=== PATIENT | female | born 1990 | race Caucasian/White ===

== ENCOUNTER → 2016-11-10 | Day surgery (SDC) | payer OTHER ==
[~2016-11-10] VITALS: Ht 165.1 cm; Wt 61.8 kg
[~2016-11-10] MED LIST: DOCO100C PO; Dexamethasone 4 mg/mL Inj IVPUSH PRN; Dexamethasone 4 mg/mL Inj ONE; EPHEDrine Sulfate 50 mg/mL Inj IVPUSH PRN; HYDROcodone-APAP 5-325 mg Tablet PO PRN; HYDROmorphone 1 mg/mL Inj IVPUSH PRN; Lactated Ringer's 1,000 ML IV ONE; Lactated Ringer's 1,000 ML IV SCH; Lactated Ringer's 500 ML IV PRN; Methylergonovine 0.2 mg/mL Inj ONE; MetoCLOpramide 5 mg/mL 2 mL Inj IVPUSH PRN; Ondansetron 2 mg/mL 2 mL Inj IVPUSH ONE; Ondansetron 2 mg/mL 2 mL Inj IVPUSH PRN; Ondansetron 2 mg/mL 2 mL Inj ONE; PRENATAL PO; Phenylephrine 10,000 mCg/mL Inj IVPUSH PRN; Propofol 10,000 mCg/mL 20 mL Inj ONE; fentaNYL-PF 50 mCg/mL 2 mL Inj IVPUSH PRN; fentaNYL-PF 50 mCg/mL 2 mL Inj ONE
[2016-11-10 11:45] VITALS: BP 115/73; PULSE 81; RESP 12; O2SAT 100
--- NOTE | 2016-11-10 13:29 | PCM.HPANE ---
Patient Data Date of Service: Nov 10, 2016 Surgeon Admitting Provider: Attending Provider:Yesi Walker MD Primary Care Physician:Frank Other Provider:Markie Davenport Anesthesia Reason for Visit Miscarriage Ht/WT & BMI Height (Feet): 5 Height (Inches): 5 Weight (Kilograms): 61.8 Body Mass Index 22.00 Allergies Coded Allergies: No Known Allergies (Unverified , 11/09/16) Past Anesthesia History Anesthesia History: Denies:: Anesthesia Reactions, Malignant Hyperthermia Diabetes History Hx Diabetes?: No MRSA MRSA: No Medications Reported Medications Docosahexanoic Acid (Dha)100 Mg [id number] Mg PO 11/10/16 [ 28] No Conflict Check1 Tab PO DAILY 11/09/16 History History of ENT Problems?: No HEENT History: Denies:: Abnormal Airway Cataracts Difficult Intubation Dysphagia Glaucoma Hearing Problem Sinus Problem TMJ Denture Type: None Teeth Condition: Within Normal Limits Hx of Heart Problems?: No Cardiovascular History: Denies:: AICD Abdominal Aortic Aneurism Atrial Fibrillation Cardiac Surgery Chest Pain Congestive Heart Failure Coronary Artery Disease Edema Heart Murmur Hypertension Irregular Heartbeat Pacemaker Peripheral Vascular Rheumatic Fever Thrombophlebitis Valvular Heart Disease Hx of Respiratory Problem?: No Respiratory History: Denies:: Asthma COPD Chest Surgery Cough Dyspnea Emphysema Hemoptysis Oxygen Administration Pneumonia Pulmonary Embolism Tuberculosis Use of C-PAP Machine Use of Inhalers / NEBS Hx Neurologic Problems?: No Neurological History: Denies:: Alzheimer's Disease CVA Dementia Dizziness Headaches Multiple Sclerosis Parkinson's Disease Peripheral Neuropathy Seizures TIA Hx of GI Problems?: No Gastrointestinal History: Denies:: Cirrhosis Diverticulitis Gall Bladder Disease Gastroesphageal Reflux Gastrointestinal Bleeding Heartburn Hepatitis Hiatal Hernia Liver Disease Rectal Bleeding Hx of Problems?: Yes Genitourinary History: Denies:: HX of Hemodialysis Kidney Stones Urinary Tract Infection Other Pertinent History: C/OF URINARY FREQUENCY Female Hx: Positive for:: Currently Denies:: Endometriosis Pelvic Inflammatory Problems with Breasts? Skin History: Denies:: History Skin Disorders? Pressure Ulcers Hx Musculoskeletal Problems?: No Musculoskeletal History: Denies:: Back Injury Degenerative Joint Fibromyalgia Joint Replacement Musculoskeletal Trauma Myasthenia Gravis Osteoarthritis Rheumatoid Arthritis Systemic Lupus Hx of Psycho/Social Problems?: No Psycho Social History: Denies:: Anxiety Bipolar Disorder Hx Depression Suicide Attempt Hx Surgeries?: Yes (C/S X1) Hx Any Other Health Problems?: Yes Other History: Denies:: Cancer Endocrine Disease Hospitalization Thyroid Disease History Blood Transfusions: Denies:: Accept Blood Products? Blood Transfuse Reaction Blood Transfusions Hx Diabetes: No Hx Alcohol Use: NoHx Substance Use: No Smoking Status: Never Smoker Stop/Bang Treated for Sleep Apnea?: No Do You Have a CPAP Machine?: No S-Snoring: Do You Snore Loudly: No T-Tired: feel tired, fatigued: No O-Obsered: Observed not breath: No P-Blood Pressure: treated: No B- Body Mass Index > 35 kg/m2: No A- Age over 50: No N- Neck Large Circumference: No G- Gender Male: No TODD Total Score: 0 TODD Risk Assessment: Low Risk, <3 Yes Risk Assessment Category Category 1A: Patient has history of documented sleep apnea, and HAS NOT received any narcotic, sedative or anesthesia administration during this stay. Category 1B: Patient has history of documented sleep apnea, and HAS received any narcotic , sedative or anesthesia administration during this stay Category 2: Patient has SUSPECTED Obstructive Sleep Apnea, and HAS received any narcotic , sedative or anesthesia administration during this stay. Category 3: Patient has SUSPECTED Obstructive Sleep Apnea and HAS NOT received narcotic, sedative or anesthesia administration during this stay. Category 4: Outpatient in Procedural Areas with known sleep apnea or who screen positive for High Risk via the STOP/BANG questionnaire. Exam Exam Vital Signs Vital Signs Date Time Temp Pulse Resp B/P Pulse Ox O2 Delivery O2 Flow Rate FiO2 11/10/16 11:45 35.9 81 12 115/73 100 Room Air General Appearance: Alert, Oriented X3, Cooperative, No Acute Distress HEENT/AIRWAY: MP 1 Lungs: Clear to Auscultation, Normal Air Movement Heart: Exam Unremarkable, Regular Rate/Rhythm, No Murmurs/Rubs/Gallops Meds/Labs/Diagnostics Admission Meds Current Medications Lactated Ringer's (Lr) 1,000 ml @ ud STK-MED ONCE IV Last administered on 12:16; Start 11/10/16 at 12:16; Stop 11/10/16 at 12:17; Status DC Doxycycline Hyclate (VibraTabs) 100 mg STK-MED ONCE .ROUTE Last administered on 11/10/16 12:35; Start 11/10/16 at 12:33; Stop 11/10/16 at 12:34; Status DC Plan Impression Patient chart reviewed, patient interviewed and anesthestic plan with risks, benefits, and alternatives discussed, and informed consent obtained. NPO per Anesth. Guidelines: Yes ASA Physical Status: ASA2 Mod Systemic Disease Anesthetic Plan: GA Bene/Risks/Altern/Consents: Yes HP Complete Prior to Induction: Yes Mario Ralph MD Nov 10, 2016 13:29
[2016-11-10 14:36] VITALS: BP 112/78; PULSE 105; RESP 12; O2SAT 100
--- NOTE | 2016-11-10 14:44 | PCM.ANEP1 ---
Post Anesthesia PACU Phase 1 Assessment Vital Signs Vital Signs Date Time Temp Pulse Resp B/P Pulse Ox O2 Delivery O2 Flow Rate FiO2 11/10/16 11:45 35.9 81 12 115/73 100 Room Air Anesthetic Administered: GA Level of Alertness: Awake, talking RESENDIZ's with Equal Strength: Yes Pain: No Nausea or Vomiting: No CV Function & Hydration Stable: Yes Airway Device: Oralpharangeal Airway Oxygen Delivery: Simple Mask Lungs: Clear to Auscultation, Normal Air Movement PACU Phase 2 Assessment Complications: No Follow up Care: No Patient Instructions Provided: Yes Mario Ralph MD Nov 10, 2016 14:44
[2016-11-10 14:45] VITALS: BP 120/60
[2016-11-10 14:50] VITALS: BP 116/74; PULSE 86; RESP 14; O2SAT 100
[2016-11-10 14:57] VITALS: BP 115/73; PULSE 90; RESP 16; O2SAT 100
--- NOTE | 2016-11-10 14:57 | DIS ---
[address] [address] DISCHARGE SUMMARY PATIENT: ZARA CASAS : 1990 MR#: [id number] ADMIT: 11/10/2016 JOB ID: [id number] DIS: HOSPITAL COURSE: The patient is a 25-year-old female, 2 para 1-0-1-1, at 12 weeks with missed AB. The procedure was suction DC, which was performed. The procedure was not complicated. The patient was transferred to the recovery room in stable condition. The plan is to discharge the patient home when her pain is well controlled and she can ambulate and void. The patient is instructed to follow up in the office 2 weeks after the procedure. She is instructed that if there is heavy vaginal bleeding, severe abdominal pain, foul-smelling discharge, or fever higher than 100.4, she will need to call the office or go to the ED for evaluation. Beta hCG test ordered before the patient leaves to confirm appropriate decrease of her beta hCG level. Ibuprofen 600 mg p.o. #30 was prescribed. Percocet 10 mg p.o. was prescribed with no refills.
--- NOTE | 2016-11-10 15:01 | OP ---
[address] [address] OPERATIVE REPORT PATIENT: ZARA CASAS : 1990 MR#: [id number] ADMIT: 11/10/2016 JOB ID: [id number] DATE OF SURGERY: 11/10/2016 INDICATIONS FOR SURGERY: A 25-year-old female, 2, para 1-0-0-1, 12 weeks based on her last menstrual period. I saw her a week ago in the office with suspected missed AB. One week ultrasound repeated the same finding. No pole. No heart noticed and the gestational sac similar as measured a week ago and the patient strongly desired surgical management as soon as possible. She was scheduled for suction D and C today. SURGEON: Yesi Walker M.D. PREOPERATIVE DIAGNOSIS(ES): A 25-year-old female, 2, para 1-0-0-1, at 12 weeks based on a missed . POSTOPERATIVE DIAGNOSIS(ES): A 25-year-old female, 2, para 1-0-0-1, at 12 weeks based on a missed . Today in the preop area I discussed the patient about the clinical finding, ultrasound finding and she still strongly desires for surgical management for missed AB. She understood the risks of infection, bleeding, perforation of the uterus. She understood the risk of blood transfusion during the procedure or after the procedure. She understood there are other choices like expectant management or medical management for the situation. Informed consent signed. The patient was given one dosage of doxycycline before the procedure. DESCRIPTION OF THE PROCEDURE: She was transferred to the operating room. After anesthesia was noted to be adequate, she will placed in the dorsal lithotomy position. She was prepared and draped in a normal sterile fashion. 100 cc of urine drained before the procedure. The speculum inserted to vagina to expose the cervix. The cervix was grasped by a single-tooth tenaculum and cervix was sounded to 10 cm. The cervix was gently dilated to #9 dilator and very difficult to have further dilation. Also her ultrasound finding, the gestational sac was about six weeks gestation. So, at this time, the decision was made to use #8 suction tube. The suction tube inserted into the uterus to remove the products of and then sharp curettage performed and the suction performed again to remove the remnant of the products. The patient had active bleeding after the first suction. Bleeding was decreased after the second suction and also one Methergine 0.2 mg was given IM. Bimanual massage was performed after procedure. There was no active bleeding anymore after above management. The EBL during the procedure was 300 cc. All specimens were sent for pathology. The patient tolerated the procedure well. All instrument, needles, laps and gauzes counted correct twice. The patient is transferred to recovery room in stable condition.
[2016-11-10 15:30] VITALS: BP 120/70; PULSE 84; RESP 16; O2SAT 100
--- NOTE | 2016-11-16 09:33 | PATH ---
SURGICAL PATHOLOGY Attending Physician:Yesi Walker MD CASE STATUS: Signed Out PATIENT NAME: ZARA CASAS PID: [id number] : 1990 DATE COLLECTED:11/10/2016 00:00 SPECIMEN: Products of conception CLINICAL HISTORY: MISSED 1). PRODUCTS OF CONCEPTION FINAL DIAGNOSIS: PRODUCTS OF CONCEPTION: FRAGMENTS OF INFLAMED DECIDUA AND IMMATURE PLACENTAL TISSUE, CONSISTENT WITH SPONTANEOUS . NO TISSUE IDENTIFIED. NO EVIDENCE OF MALIGNANCY. ICD10 O02.1 GROSS DESCRIPTION: The specimen is received in formalin, labeled patient's name, sublabeled as products of conception, and consists of multiple fragments of newton-pink glistening rubbery and red-brown spongy hemorrhagic tissue (10.5 x 9.5 x 2.3 cm in aggregate). No tissue is identified. Section code: (A-D) tissue, sales representative publications. 11/11/16 JM Four additional cassettes (E-H) are subsequently submitted. MICRO DESCRIPTION: See diagnosis. ICD-9 CODES: CPT CODES: 1: 99834 Electronically Signed Out May Hancock MD [facility] [address], [place] [address] Technical component performed at [facility], [address] [place] [address] Ave[address], [place], [address]
== END | disposition home or self-care (01) ==
LOC: SAS 11:24
PROVIDERS: ATTEND Obstetrics & Gynecology
DX: O03.9 Complete or unspecified spontaneous abortion without complication (principal); Z3A.12 12 weeks gestation of pregnancy
CPT/HCPCS: 36415; 59812; 84702; J1100; J2210; J2405; J3010; J7120